=== PATIENT | female | born 1970 | race Caucasian/White ===

== ENCOUNTER 2017-11-26 11:09 | Emergency (ER) | payer BC ==
[2017-11-26 11:51] VITALS: BP 129/69
--- NOTE | 2017-11-26 13:46 | UC ---
Abdominal Pain Female HPI - HPI Summary HPI Summary: 47 yo female returned from long trip to [facility] on 11/15/18 On 11/19/18 she developed a temp of 104 and myalgias/CEDILLO and diarrhea Since then she has had daily fever/crampy abd pain/myalgias/CEDILLO and diarrhea (2- 6 x day) Tmax today 102 Today she passed a blood clot with her diarrhea (prior to this she had had no blood ) She has had tenesmus - History of Current Complaint Chief Complaint: UCGeneralIllness Stated Complaint: FEVER Time Seen by Provider: 11/26/17 13:07 Hx Obtained From: Patient Onset/Duration: Sudden Onset, Lasting Hours, Lasting Days Severity Initially: Moderate Severity Currently: Moderate Pain Intensity: 4 Pain Scale Used: 0-10 Numeric Location: Diffuse - intermittent Radiates: No Character: Cramping Aggravating Factor(s): Nothing Alleviating Factor(s): Nothing Associated Signs and Symptoms: Positive: Fever, Blood in Stool - today, Decreased Appetite, Nausea, Diarrhea Allergies/Adverse Reactions: Allergies Allergy/AdvReac Type Severity Reaction Status Date / Time No Known Allergies Allergy Verified 10/12/17 10:50 PMH/Surg Hx/FS Hx/Imm Hx Previously Healthy: Yes - Surgical History Surgical History: Yes Surgery Procedure, Year, and Place: bone removed from right 5th toe;. lump RIGHT breast (benign) [place] [place]. ESSURE PLACED (1.5T ONLY);. VARICOSE VEIN LASER; - Family History Known Family History: Positive: Hypertension - Social History Alcohol Use: Occasionally Alcohol Amount: 1-2 EVERY OTHER DAY Substance Use Type: None Smoking Status (MU): Never Smoked Tobacco Review of Systems Constitutional: Fever, Chills Gastrointestinal: Abdominal Pain, Diarrhea Neurological: Headache Is Patient Immunocompromised?: No All Other Systems Reviewed And Are Negative: Yes Physical Exam Triage Information Reviewed: Yes Appearance: Well-Appearing, No Pain Distress, Well-Nourished Vital Signs: Initial Vital Signs Temp 99.2 F 11/26/17 11:44 Pulse 96 11/26/17 11:44 Resp 18 11/26/17 11:44 BP 129/69 11/26/17 11:44 Pulse Ox 99 11/26/17 11:44 Eye Exam: Normal Eyes: Positive: Conjunctiva Clear ENT: Positive: Hearing grossly normal. Negative: Nasal congestion, Nasal drainage Neck: Positive: Supple, Nontender, No Lymphadenopathy Respiratory: Positive: Lungs clear, Normal breath sounds, No respiratory distress, No accessory muscle use Cardiovascular: Positive: RRR, No Murmur Abdomen Description: Negative: Nontender - diffuse mild tenderness ...most tender LLQ, CVA Tenderness (R), CVA Tenderness (L), Distended, Guarding, Hepatomegaly, Splenomegaly Bowel Sounds: Positive: Present, Hyperactive Musculoskeletal: Positive: ROM Intact, No Edema Neurological: Positive: Alert, Muscle Tone Normal Psychological Exam: Normal Skin Exam: Normal Abd Pain Female Course/Dx - Differential Dx/Diagnosis Differential Diagnosis: Other - dysentery Provider Diagnoses: Traveler's diarrhea Discharge - Discharge Plan Condition: Stable Disposition: HOME Prescriptions: Ciprofloxacin HCl [Cipro 500 MG TAB] 500 mg PO BID #6 tab Patient Education Materials: Traveler's Diarrhea (ED) Referrals: Jacqui oChen MD [Primary Care Provider] - As Soon As Possible Additional Instructions: lab work pending return for new or worsening symptoms start antibiotic after you collect stool specimen
== END 2017-11-26 13:45 | disposition home or self-care (01) ==
LOC: UCEAST 11:09
DX: R19.7 Diarrhea, unspecified (principal); R50.9 Fever, unspecified; K92.1 Melena; R11.0 Nausea; R51 Headache
CPT/HCPCS: 99212; G0463